=== PATIENT | female | born 1945 | race Caucasian/White ===

== ENCOUNTER 2022-07-31 18:12 | Emergency (ER) | payer OTHER, BC ==
[2022-07-31] MEDS ORDERED: SODIUM CHLORIDE 0.9% 500 ML INFUS.BAG IV ONE (18:24)
[2022-07-31 18:33] VITALS: TEMP 98.8; BMI 16.9
[2022-07-31 19:04] LABS: HEMATOCRIT 45.3 % (32.4-45.2); HEMOGLOBIN 15.3 G/dL (10.7-15.3); MCH 30.9 pg (25.7-33.7); MCHC 33.7 g/dl (32.0-36.0); MEAN CELL VOLUME 91.9 fl (80-96); MEAN PLT VOLUME 9.3 fl (7.5-11.1); PLATELET COUNT 399.7 10^3/uL (134-434); RBC 4.93 10^6/uL (3.60-5.2); WHITE BLOOD COUNT 8.4 10^3/uL (4.0-10.8)
[2022-07-31 19:14] LABS: ALBUMIN 4.2 g/dl (3.4-5.0); BILIRUBIN,TOTAL 0.6 mg/dl (0.2-1); CALCIUM 9.8 mg/dl (8.5-10); CREATININE 0.9 mg/dl (0.55-1.3); MAGNESIUM 1.9 mg/dL (1.8-2.4); PHOSPHOROUS 3.6 mg/dl (2.5-4.9); TOT PROT 7.6 g/dl (6.4-8.2)
[2022-07-31 19:30] LABS: PLATELET ESTIMATE ADEQUATE
[2022-07-31 20:40] VITALS: BP 165/76; PULSE 84; RESP 18
[2022-07-31 22:02] LABS: EPITHELIAL CELLS FEW /hpf
[2022-07-31 22:04] LABS: N-TERMINAL BNP 191.3 pg/ml (5-450)
== END 2022-07-31 21:45 | disposition home or self-care (01) ==
LOC: FER 18:12
DX: M25.532 Pain in left wrist (principal); M25.572 Pain in left ankle and joints of left foot; S52.325A Nondisplaced transverse fracture of shaft of left radius, initial encounter for closed fracture; R53.1 Weakness; R55 Syncope and collapse; W18.30XA Fall on same level, unspecified, initial encounter
CPT/HCPCS: 36415; 70450-TC; 71045-TC-FY; 73110-TC-LT-FY; 73610-TC-LT-FY; 80053; 81003; 81015; 83735; 83880; 84100; 84443; 84484; 85027; 87086; 93005; 99285-25